=== PATIENT | male | born 1995 | race Caucasian/White ===

== ENCOUNTER 2017-12-16 15:33 | Emergency (ER) | payer BC ==
[2017-12-16 16:48] VITALS: BP 151/72
--- NOTE | 2017-12-16 18:14 | UC ---
Complaint Male HPI - HPI Summary HPI Summary: Pt c/o intermittent groin and left side testicular/scrotal pain. Pt denies, injury, dysuria, hematuria, mas or penile discharge. Pt soes report that prior to onset of pain, pt was lifting and moving heavy furniture. Pt is concerned about hernia. - History of Current Complaint Chief Complaint: UCGeneralIllness Stated Complaint: GROIN PAIN Time Seen by Provider: 12/16/17 17:04 Hx Obtained From: Patient Onset/Duration: Sudden Onset, Lasting Days Timing: Intermittent, Lasting Minutes Severity Initially: Mild Severity Currently: Mild Pain Intensity: 4 Pain Scale Used: 0-10 Numeric Location: Testicle Character: Sharp Aggravating Factor(s): Nothing Alleviating Factor(s): Other - position Associated Signs And Symptoms: Positive: Negative - Risk Factors Testicular Torsion: Negative - Allergies/Home Medications Allergies/Adverse Reactions: Allergies Allergy/AdvReac Type Severity Reaction Status Date / Time No Known Allergies Allergy Verified 12/16/17 16:48 Home Medications: Home Medications Ibuprofen TAB* [Motrin TAB* 400 MG] 400 mg PO Q6H PRN 12/16/17 [History Confirmed 12/16/17] PMH/Surg Hx/FS Hx/Imm Hx Previously Healthy: Yes Other History Of: Negative For: HIV, Hepatitis B, Hepatitis C, Anticoagulant Therapy - Surgical History Surgical History: None - Family History Known Family History: Negative: Cardiac Disease, Hypertension - Social History Occupation: Employed Full-time Lives: With Family Alcohol Use: None Substance Use Type: None Smoking Status (MU): Never Smoked Tobacco Have You Smoked in the Last Year: No Household Exposure Type: Cigarettes - Immunization History Most Recent Tetanus Shot: WITHIN 5 YEARS Review of Systems Constitutional: Negative Skin: Negative Eyes: Negative ENT: Negative Respiratory: Negative Cardiovascular: Negative Gastrointestinal: Negative Genitourinary: Other - testicular, left groin and scrotal aching that is intermittent Motor: Negative Neurovascular: Negative Musculoskeletal: Negative Neurological: Negative Psychological: Negative Is Patient Immunocompromised?: No All Other Systems Reviewed And Are Negative: Yes Physical Exam Triage Information Reviewed: Yes Appearance: Well-Appearing Vital Signs: Initial Vital Signs Temp 98.8 F 12/16/17 16:43 Pulse 88 12/16/17 16:43 Resp 16 12/16/17 16:43 BP 151/72 12/16/17 16:43 Pulse Ox 100 12/16/17 16:43 Vital Signs Reviewed: Yes Eye Exam: Normal ENT Exam: Normal ENT: Positive: Hearing grossly normal Dental Exam: Normal Neck exam: Normal Respiratory: Positive: No respiratory distress Male Genital Exam: Positive: Normal Genitalia. Negative: Normal Prostate, No Hernia, Epididymal Tenderness, Hernia Mass, Inguinal Tenderness, Scrotum Tenderness (R), Scrotum Tenderness (L), Testicular Tenderness (R), Testicular Tenderness (L) Musculoskeletal Exam: Normal Neurological Exam: Normal Psychological Exam: Normal Skin Exam: Normal Complaint Male Course/Dx - Differential Dx/Diagnosis Differential Diagnosis/HQI/PQRI: Epididymitis, Prostatitis, Testicular Torsion Provider Diagnoses: pelvic strain. scrotal pain. testicular pain Discharge - Sign-Out/Discharge Documenting (check all that apply): Patient Departure All imaging exams completed and their final reports reviewed: No Studies - Discharge Plan Condition: Stable Disposition: HOME Patient Education Materials: Groin Pain (ED), Scrotal Pain (ED) Referrals: Care [facility] [Outside] - If Needed No Primary Care Phys,NOPCP [Primary Care Provider] - - Billing Disposition and Condition Condition: STABLE Disposition: Home
== END 2017-12-16 17:22 | disposition home or self-care (01) ==
LOC: UCCORT 15:33
DX: S33.9XXA Sprain of unspecified parts of lumbar spine and pelvis, initial encounter (principal); X50.0XXA Overexertion from strenuous movement or load, initial encounter; Y93.89 Activity, other specified; Y92.9 Unspecified place or not applicable; N50.82 Scrotal pain; N50.812 Left testicular pain; N50.811 Right testicular pain
CPT/HCPCS: 99211; G0463